=== PATIENT | male | born 1940 | race Caucasian/White ===

== ENCOUNTER 2018-10-10 13:00 | Inpatient (IN) | payer MEDICARE, OTHER ==
--- NOTE | 2018-10-10 15:27 | EDM.PDOC ---
ED HPI GENERAL MEDICAL PROBLEM - General Chief Complaint: Genitourinary Problem Stated Complaint: CANNOT USE THE BATHROOM Time Seen by Provider: 10/10/18 15:24 Source of Information: Reports: Patient History Limitations: Reports: No Limitations - History of Present Illness INITIAL COMMENTS - FREE TEXT/NARRATIVE: pt is having problems passing his urine. He has not had a bm for 3 days. He is distended and feels uncomfortable in his abdoman. Onset: Today Duration: Hour(s): Location: Reports: Abdomen, Generalized Associated Symptoms: Reports: No Other Symptoms Abdomen Pain Score (Numeric/FACES): 8 - Related Data Allergies Allergy/AdvReac Type Severity Reaction Status Date / Time No Known Allergies Allergy Verified 10/10/18 14:25 Home Meds: Home Meds Aspirin 81 mg PO DAILY 10/10/18 [History] Enalapril [Vasotec] 20 mg PO DAILY 10/10/18 [History] Simvastatin 10 mg PO DAILY 10/10/18 [History] Sulfamethoxazole/Trimethoprim [Bactrim Ds Tablet] 1 each PO BID 10/10/18 [ History] Past Medical History HEENT History: Reports: Cataract Cardiovascular History: Reports: High Cholesterol, Hypertension Respiratory History: Reports: SOB Musculoskeletal History: Reports: Back Pain, Chronic Endocrine/Metabolic History: Reports: Obesity/BMI 30+ Oncologic (Cancer) History: Reports: Other (See Below) Other Oncologic History: "skin cancer on nose." - Past Surgical History HEENT Surgical History: Reports: Cataract Surgery Social & Family History - Tobacco Use Smoking Status *Q: Former Smoker Used Tobacco, but Quit: Yes Month/Year Tobacco Last Used: 2008 - Caffeine Use Caffeine Use: Reports: Coffee - Recreational Drug Use Recreational Drug Use: No ED ROS GENERAL - Review of Systems Review Of Systems: See Below Constitutional: Reports: Malaise, Weakness, Other ( difficulty voiding. ) HEENT: Reports: No Symptoms Respiratory: Reports: No Symptoms Cardiovascular: Reports: No Symptoms Endocrine: Reports: No Symptoms GI/Abdominal: Reports: Abdominal Pain : Reports: Urinary Retention Musculoskeletal: Reports: No Symptoms ED EXAM, GI/ABD - Physical Exam Exam: See Below Text/Narrative:: pt arrived at the hosp rating his pain at a 8. He has not had a bm for 3 days. He is having difficulty voiding. Only small drops are coming. He was told yesterday that he has a UTI and is on bactrim. He is not vomiting but he is not passing gas. Exam Limited By: No Limitations General Appearance: Alert, Anxious, Moderate Distress Ears: Normal TMs Nose: Normal Inspection Throat/Mouth: Normal Inspection Head: Atraumatic Neck: Normal Inspection Respiratory/Chest: No Respiratory Distress Cardiovascular: Regular Rate, Rhythm GI/Abdominal Exam: Distended, Other ( diffusely tender. He is not passing gas. ) (Male) Exam: Other (pt has about 800 cc of urine in his bladder. A davidson cath was inserted. ) Rectal (Males) Exam: Deferred Back Exam: Normal Inspection Extremities: Normal Inspection Neurological: Alert, Oriented, Normal Cognition Psychiatric: Normal Affect Course - Vital Signs Last Recorded V/S: Last Vital Signs Temp 35.8 C 10/10/18 14:34 Pulse 68 10/10/18 14:34 Resp 19 10/10/18 14:34 BP 169/85 H 10/10/18 14:34 Pulse Ox 91 L 10/10/18 14:34 - Orders/Labs/Meds Orders: Active Orders 24 hr Category Date Time Status Bladder Scan [RC] ASDIRECTED Care 10/10/18 14:31 Active Davidson Catheter Insertion [Insert Urinary Catheter] [OM. Care 10/10/18 15:15 Ordered PC] Q24H Urinary Catheter Assessment [RC] ASDIRECTED Care 10/10/18 15:12 Active Sodium Chloride 0.9% [Normal Saline] 1,000 ml Med 10/10/18 15:30 Active IV ASDIRECTED Sodium Chloride 0.9% [Normal Saline] 1,000 ml Med 10/10/18 16:45 Active IV ASDIRECTED Medication Orders Sodium Chloride (Normal Saline) 1,000 mls @ 999 mls/hr IV ASDIRECTED PAYAM Last Admin: 10/10/18 15:45 Dose: 999 mls/hr Sodium Chloride (Normal Saline) 1,000 mls @ 500 mls/hr IV ASDIRECTED PAYAM Labs: Laboratory Tests 10/10/18 10/10/18 10/10/18 Range/Units 14:31 14:31 14:31 WBC 13.5 H (4.5-11.0) K/uL RBC 4.75 (4.30-5.90) M/uL Hgb 13.7 (12.0-15.0) g/dL Hct 41.4 (40.0-54.0) % MCV 87 (80-98) fL MCH 29 (27-31) pg MCHC 33 (32-36) % Plt Count 313 (150-400) K/uL Neut % (Auto) 71 H (36-66) % Lymph % (Auto) 11 L (24-44) % [place] % (Auto) 18 H (2-6) % Eos % (Auto) 0 L (2-4) % Baso % (Auto) 0 (0-1) % Sodium 135 L (140-148) mmol/L Potassium 4.2 (3.6-5.2) mmol/L Chloride 97 L (100-108) mmol/L Carbon Dioxide 25 (21-32) mmol/L Anion Gap 17.2 H (5.0-14.0) mmol/L BUN 23 H (7-18) mg/dL Creatinine 3.2 H (0.8-1.3) mg/dL Est Cr Clr Drug Dosing 16.89 mL/min Estimated GFR (MDRD) 19 L (>60) Glucose 145 H (74-106) mg/dL Lactic Acid (0.4-2.0) mmol/L Calcium 9.8 (8.5-10.1) mg/dL Total Bilirubin 0.6 (0.2-1.0) mg/dL AST 30 (15-37) U/L ALT 28 (12-78) U/L Alkaline Phosphatase 65 (46-116) U/L C-Reactive Protein 3.09 H (0.0-0.3) mg/dL Total Protein 7.2 (6.4-8.2) g/dL Albumin 3.4 (3.4-5.0) g/dL Globulin 3.8 H (2.3-3.5) g/dL Albumin/Globulin Ratio 0.9 L (1.2-2.2) Urine Color Urine Appearance Urine pH (4.5-8.0) Ur Specific [place] (1.008-1.030) Urine Protein (NEGATIVE) mg/dL Urine Glucose (UA) (NEGATIVE) mg/dL Urine Ketones (NEGATIVE) mg/dL Urine Occult Blood (NEGATIVE) Urine Nitrite (NEGAITVE) Urine Bilirubin (NEGATIVE) Urine Urobilinogen (NORMAL) mg/dL Ur Leukocyte Esterase (NEGATIVE) Urine RBC (0-5) Urine WBC (0-5) Ur Epithelial Cells Amorphous Sediment Urine Bacteria Urine Mucus 10/10/18 10/10/18 Range/Units 15:25 15:43 WBC (4.5-11.0) K/uL RBC (4.30-5.90) M/uL Hgb (12.0-15.0) g/dL Hct (40.0-54.0) % MCV (80-98) fL MCH (27-31) pg MCHC (32-36) % Plt Count (150-400) K/uL Neut % (Auto) (36-66) % Lymph % (Auto) (24-44) % [place] % (Auto) (2-6) % Eos % (Auto) (2-4) % Baso % (Auto) (0-1) % Sodium (140-148) mmol/L Potassium (3.6-5.2) mmol/L Chloride (100-108) mmol/L Carbon Dioxide (21-32) mmol/L Anion Gap (5.0-14.0) mmol/L BUN (7-18) mg/dL Creatinine (0.8-1.3) mg/dL Est Cr Clr Drug Dosing mL/min Estimated GFR (MDRD) (>60) Glucose (74-106) mg/dL Lactic Acid 2.5 H (0.4-2.0) mmol/L Calcium (8.5-10.1) mg/dL Total Bilirubin (0.2-1.0) mg/dL AST (15-37) U/L ALT (12-78) U/L Alkaline Phosphatase (46-116) U/L C-Reactive Protein (0.0-0.3) mg/dL Total Protein (6.4-8.2) g/dL Albumin (3.4-5.0) g/dL Globulin (2.3-3.5) g/dL Albumin/Globulin Ratio (1.2-2.2) Urine Color Yellow Urine Appearance Clear Urine pH 5.0 (4.5-8.0) Ur Specific [place] 1.010 (1.008-1.030) Urine Protein Negative (NEGATIVE) mg/dL Urine Glucose (UA) Normal (NEGATIVE) mg/dL Urine Ketones Negative (NEGATIVE) mg/dL Urine Occult Blood Large (NEGATIVE) Urine Nitrite Negative (NEGAITVE) Urine Bilirubin Negative (NEGATIVE) Urine Urobilinogen Normal (NORMAL) mg/dL Ur Leukocyte Esterase Negative (NEGATIVE) Urine RBC 20-30 H (0-5) Urine WBC Not seen (0-5) Ur Epithelial Cells Not seen Amorphous Sediment Not seen Urine Bacteria Not seen Urine Mucus Not seen Meds: Medications Generic Name Dose Route Start Last Admin Trade Name Freq PRN Reason Stop Dose Admin Sodium Chloride 1,000 mls @ 999 mls/hr 10/10/18 15:30 10/10/18 15:45 Normal Saline IV 999 mls/hr ASDIRECTED PAYAM Administration Sodium Chloride 1,000 mls @ 500 mls/hr 10/10/18 16:45 Normal Saline IV ASDIRECTED PAYAM Discontinued Medications Generic Name Dose Route Start Last Admin Trade Name Freq PRN Reason Stop Dose Admin Hydromorphone HCl 0.5 mg 10/10/18 16:07 10/10/18 16:15 Dilaudid IVPUSH 10/10/18 16:08 0.5 mg ONETIME ONE Administration Magnesium Citrate 296 ml 10/10/18 16:44 Citrate Of Magnesia PO 10/10/18 16:45 ONETIME ONE Ondansetron HCl 4 mg 10/10/18 16:08 10/10/18 16:12 Zofran IVPUSH 10/10/18 16:09 4 mg ONETIME ONE Administration - Re-Assessments/Exams Free Text/Narrative Re-Assessment/Exam: 10/10/18 16:49 wbc is 13,000. He had a creatnine of 3.2. He had a rectal exam which did not reveal any rectal stool present. He was given dilauduid .5 iv. Departure - Departure Time of Disposition: 16:52 Disposition: Admitted As Inpatient 65 Condition: Fair Clinical Impression: Urinary retention, Constipation, Kidney inflammation with edema - Discharge Information Referrals: Ronaldo Munguia [employer] [Primary Care Provider] - Forms: ED Department Discharge Care Plan Goals: admit to Dr olguin - My Orders Last 24 Hours: My Active Orders 10/10/18 14:31 Bladder Scan [RC] ASDIRECTED 10/10/18 15:12 Urinary Catheter Assessment [RC] ASDIRECTED 10/10/18 15:15 Davidson Catheter Insertion [Insert Urinary Catheter] [OM.PC] Q24H 10/10/18 15:30 Sodium Chloride 0.9% [Normal Saline] 1,000 ml IV ASDIRECTED 10/10/18 16:45 Sodium Chloride 0.9% [Normal Saline] 1,000 ml IV ASDIRECTED - Assessment/Plan Last 24 Hours: My Active Orders 10/10/18 14:31 Bladder Scan [RC] ASDIRECTED 10/10/18 15:12 Urinary Catheter Assessment [RC] ASDIRECTED 10/10/18 15:15 Davidson Catheter Insertion [Insert Urinary Catheter] [OM.PC] Q24H 10/10/18 15:30 Sodium Chloride 0.9% [Normal Saline] 1,000 ml IV ASDIRECTED 10/10/18 16:45 Sodium Chloride 0.9% [Normal Saline] 1,000 ml IV ASDIRECTED
[2018-10-10] MEDS ORDERED: Sodium Chloride 0.9% 1,000 ML IV SCH ×2 (15:30→16:45)
--- NOTE | 2018-10-10 15:44 | CRLCR ---
TECHNIQUE: Single view of the chest, upright view of the upper abdomen, supine view of the mid and lower abdomen. INDICATION: Abdominal pain. FINDINGS: Gas distended loops of colon in the abdomen. No free air. Both ileus and obstruction are possible. Consider contrast-enhanced CT for further evaluation. Dictated by Jonathan Mai MD @ 10/10/2018 3:42:14 PM Dictated by: Jonathan aMi MD @ 10/10/2018 15:42:19 (Electronically Signed)
[2018-10-10] MEDS ORDERED: HYDROmorphone 0.5 MG/0.5 ML Syringe IVPUSH ONE (16:07)
[2018-10-10] MEDS ORDERED: Ondansetron 4 MG/2 ML SDV IVPUSH ONE (16:08)
--- NOTE | 2018-10-10 16:29 | CRLCT ---
TECHNIQUE: Noncontrast CT abdomen and pelvis. INDICATION: Distended abdomen, no stool for 3 days. COMPARISON: Abdomen x-ray same day. FINDINGS: The liver, spleen, pancreas, and adrenal glands are normal. There is a small hiatal hernia. Gallbladder and biliary tree are unremarkable. There is gas and a small amount of stool within the colon but no evidence for either small or large bowel obstruction. There is colonic diverticulosis with no evidence for acute diverticulitis. The appendix is normal. There is a fair amount of retroperitoneal stranding, particularly around both kidneys. This is typically a normal variant. A retroperitoneal inflammatory or infiltrative process is unlikely. No adenopathy, free air, or free fluid. Emphysema in the lung bases. Reynolds catheter in the bladder. Prostate enlargement. IMPRESSION: No acute findings. No evidence for bowel obstruction. Dictated by Jonathan Mai MD @ 10/10/2018 4:27:03 PM Please note that all CT scans at this facility use dose modulation, iterative reconstruction, and/or weight-based dosing when appropriate to reduce radiation dose to as low as reasonably achievable. Dictated by: Jonathan Mai MD @ 10/10/2018 16:27:12 (Electronically Signed)
[2018-10-10] MEDS ORDERED: Magnesium Citrate Solution 296 ML Bottle PO ONE (16:44)
--- NOTE | 2018-10-10 17:37 | PCM.HP ---
H&P History of Present Illness - General Date of Service: 10/10/18 Admit Problem/Dx: Admission Diagnosis/Problem Admission Diagnosis/Problem Acute kidney injury Source of Information: Patient, Provider History Limitations: Reports: No Limitations - History of Present Illness Initial Comments - Free Text/Narative: CC: I can't pee HPI: Michael presents to the emergency room today with inability to pass urine. Symptoms started 2 days ago and were accompanied by abdominal distention as well as nausea. He was up about every hour during the night 2 nights ago trying to pass urine but only able to pass small quantities. Symptoms persisted throughout the day yesterday and overnight and have continued again today. He was seen in the clinic yesterday and diagnosed with a urinary tract infection and started on Bactrim. His abdomen has had progressive distention over the past 2 days. He has not had a bowel movement or passed gas in 48 hours. He describes moderate crampy and pressure-like abdominal pain. Pain does not radiate but is spread throughout his abdomen. He hasn't taken anything to make it feel better. No obvious triggers to make it worse. He does not feel short of breath. He has not had any fevers but has had some chills. No history of prostate issues that he recalls. He's never had a bladder infection before. He does note that he spent most of the last week writing on a 4 holcomb. Workup in the emergency room has revealed acute kidney injury with a creatinine of 3.2 and a normal GFR at baseline. He is not febrile. CT scan of the abdomen shows significant gas throughout the colon but no evidence for obstruction. No significant stool in the colon. A Reynolds catheter was placed because of urinary retention and a bladder scan with more than 800 mL of urine in the bladder. He will be admitted for further management. Abdomen Pain Score (Numeric/FACES): 8 - Related Data Allergies/Adverse Reactions: Allergies Allergy/AdvReac Type Severity Reaction Status Date / Time No Known Allergies Allergy Verified 10/10/18 14:25 Home Medications: Home Meds Aspirin 81 mg PO DAILY 10/10/18 [History] Enalapril [Vasotec] 20 mg PO DAILY 10/10/18 [History] Simvastatin 10 mg PO DAILY 10/10/18 [History] Sulfamethoxazole/Trimethoprim [Bactrim Ds Tablet] 1 each PO BID 10/10/18 [ History] Past Medical History HEENT History: Reports: Cataract Cardiovascular History: Reports: High Cholesterol, Hypertension Respiratory History: Reports: SOB Musculoskeletal History: Reports: Back Pain, Chronic Endocrine/Metabolic History: Reports: Obesity/BMI 30+ Oncologic (Cancer) History: Reports: Other (See Below) Other Oncologic History: "skin cancer on nose." - Past Surgical History HEENT Surgical History: Reports: Cataract Surgery Social & Family History - Family History Musculoskeletal: Reports: Arthritis - Tobacco Use Smoking Status *Q: Former Smoker Used Tobacco, but Quit: Yes Month/Year Tobacco Last Used: 2008 - Caffeine Use Caffeine Use: Reports: Coffee - Alcohol Use Alcohol Use History: No - Recreational Drug Use Recreational Drug Use: No H&P Review of Systems - Review of Systems: Review Of Systems: See Below Free Text/Narrative: A complete 12 point review of systems was obtained. Pertinent positives and negatives are noted in the history of present illness. All other systems were reviewed and were negative except as noted. Exam - Exam Exam: See Below - Vital Signs Vital Signs: Last Vital Signs Temp 35.8 C 10/10/18 14:34 Pulse 68 10/10/18 14:34 Resp 19 10/10/18 14:34 BP 169/85 H 10/10/18 14:34 Pulse Ox 91 L 10/10/18 14:34 Weight: 103.5 kg - Exam Quality Assessment: No: Supplemental Oxygen General: Alert, Oriented, Cooperative. No: Mild Distress HEENT: Conjunctiva Clear. No: Mucosa Moist & [place] (dry), Scleral Icterus Neck: Supple, Trachea Midline. No: Lymphadenopathy Lungs: Clear to Auscultation, Normal Respiratory Effort Cardiovascular: Regular Rate, Regular Rhythm. No: Systolic Murmur GI/Abdominal Exam: Soft, Distended, Tender, Abnormal Bowel Sounds (hypoactive) Extremities: No Pedal Edema. No: Increased Warmth Peripheral Pulses: 2+: Dorsalis Pedis (L), Dorsalis Pedis (R) Skin: Warm, Dry Neuro Extensive - Mental Status: Alert, Oriented x3, Nl Response to Commands Neuro Extensive - Motor, Sensory, Reflexes: No: Dysarthria, Abnormal Motor, Tremor Psychiatric: Alert, Normal Affect - Patient Data Lab Results Last 24 hrs: Laboratory Results - last 24 hr 10/10/18 10/10/18 10/10/18 Range/Units 14:31 14:31 14:31 WBC 13.5 H (4.5-11.0) K/uL RBC 4.75 (4.30-5.90) M/uL Hgb 13.7 (12.0-15.0) g/dL Hct 41.4 (40.0-54.0) % MCV 87 (80-98) fL MCH 29 (27-31) pg MCHC 33 (32-36) % Plt Count 313 (150-400) K/uL Neut % (Auto) 71 H (36-66) % Lymph % (Auto) 11 L (24-44) % [place] % (Auto) 18 H (2-6) % Eos % (Auto) 0 L (2-4) % Baso % (Auto) 0 (0-1) % Sodium 135 L (140-148) mmol/L Potassium 4.2 (3.6-5.2) mmol/L Chloride 97 L (100-108) mmol/L Carbon Dioxide 25 (21-32) mmol/L Anion Gap 17.2 H (5.0-14.0) mmol/L BUN 23 H (7-18) mg/dL Creatinine 3.2 H (0.8-1.3) mg/dL Est Cr Clr Drug Dosing 16.89 mL/min Estimated GFR (MDRD) 19 L (>60) Glucose 145 H (74-106) mg/dL Lactic Acid (0.4-2.0) mmol/L Calcium 9.8 (8.5-10.1) mg/dL Total Bilirubin 0.6 (0.2-1.0) mg/dL AST 30 (15-37) U/L ALT 28 (12-78) U/L Alkaline Phosphatase 65 (46-116) U/L C-Reactive Protein 3.09 H (0.0-0.3) mg/dL Total Protein 7.2 (6.4-8.2) g/dL Albumin 3.4 (3.4-5.0) g/dL Globulin 3.8 H (2.3-3.5) g/dL Albumin/Globulin Ratio 0.9 L (1.2-2.2) Urine Color Urine Appearance Urine pH (4.5-8.0) Ur Specific [place] (1.008-1.030) Urine Protein (NEGATIVE) mg/dL Urine Glucose (UA) (NEGATIVE) mg/dL Urine Ketones (NEGATIVE) mg/dL Urine Occult Blood (NEGATIVE) Urine Nitrite (NEGAITVE) Urine Bilirubin (NEGATIVE) Urine Urobilinogen (NORMAL) mg/dL Ur Leukocyte Esterase (NEGATIVE) Urine RBC (0-5) Urine WBC (0-5) Ur Epithelial Cells Amorphous Sediment Urine Bacteria Urine Mucus 10/10/18 10/10/18 Range/Units 15:25 15:43 WBC (4.5-11.0) K/uL RBC (4.30-5.90) M/uL Hgb (12.0-15.0) g/dL Hct (40.0-54.0) % MCV (80-98) fL MCH (27-31) pg MCHC (32-36) % Plt Count (150-400) K/uL Neut % (Auto) (36-66) % Lymph % (Auto) (24-44) % [place] % (Auto) (2-6) % Eos % (Auto) (2-4) % Baso % (Auto) (0-1) % Sodium (140-148) mmol/L Potassium (3.6-5.2) mmol/L Chloride (100-108) mmol/L Carbon Dioxide (21-32) mmol/L Anion Gap (5.0-14.0) mmol/L BUN (7-18) mg/dL Creatinine (0.8-1.3) mg/dL Est Cr Clr Drug Dosing mL/min Estimated GFR (MDRD) (>60) Glucose (74-106) mg/dL Lactic Acid 2.5 H (0.4-2.0) mmol/L Calcium (8.5-10.1) mg/dL Total Bilirubin (0.2-1.0) mg/dL AST (15-37) U/L ALT (12-78) U/L Alkaline Phosphatase (46-116) U/L C-Reactive Protein (0.0-0.3) mg/dL Total Protein (6.4-8.2) g/dL Albumin (3.4-5.0) g/dL Globulin (2.3-3.5) g/dL Albumin/Globulin Ratio (1.2-2.2) Urine Color Yellow Urine Appearance Clear Urine pH 5.0 (4.5-8.0) Ur Specific [place] 1.010 (1.008-1.030) Urine Protein Negative (NEGATIVE) mg/dL Urine Glucose (UA) Normal (NEGATIVE) mg/dL Urine Ketones Negative (NEGATIVE) mg/dL Urine Occult Blood Large (NEGATIVE) Urine Nitrite Negative (NEGAITVE) Urine Bilirubin Negative (NEGATIVE) Urine Urobilinogen Normal (NORMAL) mg/dL Ur Leukocyte Esterase Negative (NEGATIVE) Urine RBC 20-30 H (0-5) Urine WBC Not seen (0-5) Ur Epithelial Cells Not seen Amorphous Sediment Not seen Urine Bacteria Not seen Urine Mucus Not seen Result Diagrams: 10/10/18 14:31 10/10/18 14:31 Imaging Impressions Last 24 hrs: Chest and abdomen x-ray - images personally reviewed - lungs are clear with no mass, infiltrate or effusion. Fair amount of gas is noted throughout the colon with differential including ileus. Obstruction cannot be ruled out. CT scan of the abdomen and pelvis - images also personally reviewed - significant gaseous distention of the colon but not a lot of stool in the colon. Retroperitoneal Stranding around both kidneys thought to be normal variant. No other acute findings. No evidence for bowel obstruction. *Q Meaningful Use (ADM) - VTE Risk Assess *Q Each Risk Factor Represents 1 Point: Obesity ( BMI > 25 kg/m2), Abnormal Pulmonary Function (COPD) Total Score 1 Point Risk Factors: 2 Each Risk Factor Represents 2 Points: None Total Score 2 Point Risk Factors: 0 Each Risk Factor Represents 3 Points: Age 75 Years or Greater Total Score 3 Point Risk Factors: 3 Each Risk Factor Represents 5 Points: None Total Score 5 Point Risk Factors: 0 Venous Thromboembolism Risk Factor Score *Q: 5 - Problem List (1) Acute kidney injury SNOMED Code(s): 05986610, 32978589 ICD Code: N17.9 - ACUTE KIDNEY FAILURE, UNSPECIFIED Status: Acute Current Visit: Yes (2) Prostatitis SNOMED Code(s): 1893489 ICD Code: N41.9 - INFLAMMATORY DISEASE OF PROSTATE, UNSPECIFIED Status: Acute Current Visit: Yes Qualifiers: Prostatitis type: acute Qualified Code(s): N41.0 - Acute prostatitis (3) Ileus SNOMED Code(s): 210008957 ICD Code: K56.7 - ILEUS, UNSPECIFIED Status: Acute Current Visit: Yes Problem List Initiated/Reviewed/Updated: Yes Orders Last 24hrs: Active Orders 24 hr Category Date Time Status Patient Status Manage Transfer [TRANSFER] Routine ADT 10/10/18 17:31 Ordered Bladder Scan [RC] ASDIRECTED Care 10/10/18 14:31 Active Reynolds Catheter Insertion [Insert Urinary Catheter] [OM. Care 10/10/18 15:15 Ordered PC] Q24H Urinary Catheter Assessment [RC] ASDIRECTED Care 10/10/18 15:12 Active Sodium Chloride 0.9% [Normal Saline] 1,000 ml Med 10/10/18 15:30 Active IV ASDIRECTED Sodium Chloride 0.9% [Normal Saline] 1,000 ml Med 10/10/18 16:45 Active IV ASDIRECTED Sodium Chloride 0.9% [Normal Saline] 1,000 ml Med 10/10/18 17:30 Active IV ASDIRECTED cefTRIAXone [Rocephin] 2 gm Med 10/10/18 17:30 Active Sodium Chloride 0.9% [Normal Saline] 50 ml IV Q24H Resuscitation Status Routine Resus Stat 10/10/18 17:32 Ordered Medication Orders Sodium Chloride (Normal Saline) 1,000 mls @ 999 mls/hr IV ASDIRECTED ON LICENSE OF [facility] Last Admin: 10/10/18 15:45 Dose: 999 mls/hr Sodium Chloride (Normal Saline) 1,000 mls @ 500 mls/hr IV ASDIRECTED ON LICENSE OF [facility] Last Admin: 10/10/18 17:35 Dose: 500 mls/hr Ceftriaxone Sodium 2 gm/ (Sodium Chloride) 50 mls @ 100 mls/hr IV Q24H PAYAM Sodium Chloride (Normal Saline) 1,000 mls @ 100 mls/hr IV ASDIRECTED ON LICENSE OF [facility] Assessment/Plan Comment:: ASSESSMENT AND PLAN - Acute kidney injury - creatinine of 3.2 with baseline around 1. There may be a component of dehydration and possibly a component of obstruction leading to congestion. He is making good urine. Vital signs are stable. He has received 2 L of IV fluid in the emergency room. -IV fluids overnight -Labs in the morning Acute prostatitis, suspected - urine sample suggestive of infection and patient has acute urinary retention. Urine at this point is clear. He has been on the 4 holcomb a great deal and I suspect this irritated in lead 2 the infection in the prostate. Lactic acid level is elevated but I think it's related to dehydration rather than sepsis with normal vital signs. He was started on Bactrim yesterday but with his kidney function this is not a good antibiotic option. -Ceftriaxone -IV fluids overnight -Follow-up urine culture Acute urinary retention - Probably related to the prostatitis as discussed above. A Reynolds catheter has been placed with a urinary bladder containing more than 800 mL based on bladder scanning. -Anticipate catheter will be in place for 2 weeks Ileus, suspected - Trigger for the ileus would be his urinary tract infection. No evidence for obstruction. There is not a large quantity of stool in the colon and there is mostly gas noted. -Treat infection as above -Consider suppository in the morning Maintenance issues - - DVT prophylaxis - mechanical - GI prophylaxis - Not indicated - Nutrition - Full liquids - Reynolds catheter - Placed in the emergency room because of acute urinary retention CODE STATUS - full code Admission justification - This patient will be admitted for inpatient services and is medically appropriate meeting medical necessity for inpatient admission as outlined in my documentation. I reasonably expect the patient will require inpatient services that span a period time over 2 midnights. I reasonably expect this patient to be discharged or transferred within 96 hours after admission to the [facility]. Disposition - I would anticipate discharge home after the hospital stay Jonathan Peña M.D.
[2018-10-10] MEDS: cefTRIAXone 2 GM in Sodium Chloride 0.9% 50 ML IV SCH (17:49)
[2018-10-10] MEDS ORDERED: Ondansetron 4 MG Tab.DIS PO PRN (18:15)
[2018-10-10] MEDS ORDERED: HYDROmorphone 1 MG/ML Syringe IVPUSH PRN (18:15)
[2018-10-10] MEDS ORDERED: Albuterol 0.083% 2.5 MG/3 ML Neb Soln NEB PRN (18:15)
[2018-10-10] MEDS ORDERED: Magnesium Hydroxide 400 MG/5 ML Susp 30 ML Cup PO PRN (18:15)
[2018-10-10] MEDS ORDERED: Acetaminophen 325 MG Tab PO PRN (18:15)
[2018-10-10] MEDS ORDERED: LORazepam 2 MG/ML SDV IVPUSH PRN (18:15)
[2018-10-10] MEDS ORDERED: Ondansetron 4 MG/2 ML SDV IV PRN (18:15)
[2018-10-10] MEDS ORDERED: oxyCODONE 5 MG Tab PO PRN (18:15)
[2018-10-11] MEDS: Sodium Chloride 0.9% 1,000 ML IV SCH ×2 (00:42→11:19)
[2018-10-11] MEDS: Simvastatin 20 MG Tab PO SCH (08:11)
[2018-10-11] MEDS: Aspirin 81 MG Tab.Chew PO SCH (08:12)
[2018-10-11] MEDS: Enalapril 5 MG Tab PO SCH (08:12)
--- NOTE | 2018-10-11 14:16 | PCM.PN ---
- General Info Date of Service: 10/11/18 Subjective Update: no acute events overnight. Patient has had 2 large bowel movements since admission and abdominal pain and distention are improving but have not resolved. Not much of an appetite but did tolerate his diet okay. He has not had any high fevers but did have some low-grade temperature elevations. Kidney function has improved and his creatinine is down to 1.8. Urine culture pending. Tolerating current antibiotics. Functional Status: Reports: Pain Controlled, Tolerating Diet - Review of Systems General: Denies: Fever Gastrointestinal: Reports: Abdominal Pain - Patient Data Vitals - Most Recent: Last Vital Signs Temp 36.8 C 10/11/18 10:28 Pulse 66 10/11/18 10:28 Resp 18 10/11/18 10:28 BP 152/77 H 10/11/18 10:28 Pulse Ox 94 L 10/11/18 10:28 Weight - Most Recent: 101.06 kg I&O - Last 24 Hours: Intake & Output 10/10/18 10/11/18 10/11/18 22:59 06:59 14:59 Intake Total 400 1395 720 Output Total 1400 925 Balance -1000 470 720 Lab Results Last 24 Hours: Laboratory Results - last 24 hr 10/10/18 10/10/18 10/10/18 Range/Units 14:31 14:31 14:31 WBC 13.5 H (4.5-11.0) K/uL RBC 4.75 (4.30-5.90) M/uL Hgb 13.7 (12.0-15.0) g/dL Hct 41.4 (40.0-54.0) % MCV 87 (80-98) fL MCH 29 (27-31) pg MCHC 33 (32-36) % Plt Count 313 (150-400) K/uL Neut % (Auto) 71 H (36-66) % Lymph % (Auto) 11 L (24-44) % [place] % (Auto) 18 H (2-6) % Eos % (Auto) 0 L (2-4) % Baso % (Auto) 0 (0-1) % Sodium 135 L (140-148) mmol/L Potassium 4.2 (3.6-5.2) mmol/L Chloride 97 L (100-108) mmol/L Carbon Dioxide 25 (21-32) mmol/L Anion Gap 17.2 H (5.0-14.0) mmol/L BUN 23 H (7-18) mg/dL Creatinine 3.2 H (0.8-1.3) mg/dL Est Cr Clr Drug Dosing 16.89 mL/min Estimated GFR (MDRD) 19 L (>60) Glucose 145 H (74-106) mg/dL Lactic Acid (0.4-2.0) mmol/L Calcium 9.8 (8.5-10.1) mg/dL Total Bilirubin 0.6 (0.2-1.0) mg/dL AST 30 (15-37) U/L ALT 28 (12-78) U/L Alkaline Phosphatase 65 (46-116) U/L C-Reactive Protein 3.09 H (0.0-0.3) mg/dL Total Protein 7.2 (6.4-8.2) g/dL Albumin 3.4 (3.4-5.0) g/dL Globulin 3.8 H (2.3-3.5) g/dL Albumin/Globulin Ratio 0.9 L (1.2-2.2) Urine Color Urine Appearance Urine pH (4.5-8.0) Ur Specific [place] (1.008-1.030) Urine Protein (NEGATIVE) mg/dL Urine Glucose (UA) (NEGATIVE) mg/dL Urine Ketones (NEGATIVE) mg/dL Urine Occult Blood (NEGATIVE) Urine Nitrite (NEGAITVE) Urine Bilirubin (NEGATIVE) Urine Urobilinogen (NORMAL) mg/dL Ur Leukocyte Esterase (NEGATIVE) Urine RBC (0-5) Urine WBC (0-5) Ur Epithelial Cells Amorphous Sediment Urine Bacteria Urine Mucus 10/10/18 10/10/18 10/11/18 Range/Units 15:25 15:43 05:56 WBC 11.3 H (4.5-11.0) K/uL RBC 4.33 (4.30-5.90) M/uL Hgb 12.4 (12.0-15.0) g/dL Hct 38.7 L (40.0-54.0) % MCV 89 (80-98) fL MCH 29 (27-31) pg MCHC 32 (32-36) % Plt Count 242 (150-400) K/uL Neut % (Auto) (36-66) % Lymph % (Auto) (24-44) % [place] % (Auto) (2-6) % Eos % (Auto) (2-4) % Baso % (Auto) (0-1) % Sodium (140-148) mmol/L Potassium (3.6-5.2) mmol/L Chloride (100-108) mmol/L Carbon Dioxide (21-32) mmol/L Anion Gap (5.0-14.0) mmol/L BUN (7-18) mg/dL Creatinine (0.8-1.3) mg/dL Est Cr Clr Drug Dosing mL/min Estimated GFR (MDRD) (>60) Glucose (74-106) mg/dL Lactic Acid 2.5 H (0.4-2.0) mmol/L Calcium (8.5-10.1) mg/dL Total Bilirubin (0.2-1.0) mg/dL AST (15-37) U/L ALT (12-78) U/L Alkaline Phosphatase (46-116) U/L C-Reactive Protein (0.0-0.3) mg/dL Total Protein (6.4-8.2) g/dL Albumin (3.4-5.0) g/dL Globulin (2.3-3.5) g/dL Albumin/Globulin Ratio (1.2-2.2) Urine Color Yellow Urine Appearance Clear Urine pH 5.0 (4.5-8.0) Ur Specific [place] 1.010 (1.008-1.030) Urine Protein Negative (NEGATIVE) mg/dL Urine Glucose (UA) Normal (NEGATIVE) mg/dL Urine Ketones Negative (NEGATIVE) mg/dL Urine Occult Blood Large (NEGATIVE) Urine Nitrite Negative (NEGAITVE) Urine Bilirubin Negative (NEGATIVE) Urine Urobilinogen Normal (NORMAL) mg/dL Ur Leukocyte Esterase Negative (NEGATIVE) Urine RBC 20-30 H (0-5) Urine WBC Not seen (0-5) Ur Epithelial Cells Not seen Amorphous Sediment Not seen Urine Bacteria Not seen Urine Mucus Not seen 10/11/18 Range/Units 05:56 WBC (4.5-11.0) K/uL RBC (4.30-5.90) M/uL Hgb (12.0-15.0) g/dL Hct (40.0-54.0) % MCV (80-98) fL MCH (27-31) pg MCHC (32-36) % Plt Count (150-400) K/uL Neut % (Auto) (36-66) % Lymph % (Auto) (24-44) % [place] % (Auto) (2-6) % Eos % (Auto) (2-4) % Baso % (Auto) (0-1) % Sodium 141 (140-148) mmol/L Potassium 3.8 (3.6-5.2) mmol/L Chloride 105 (100-108) mmol/L Carbon Dioxide 28 (21-32) mmol/L Anion Gap 7.8 (5.0-14.0) mmol/L BUN 18 (7-18) mg/dL Creatinine 1.8 H (0.8-1.3) mg/dL Est Cr Clr Drug Dosing 30.03 mL/min Estimated GFR (MDRD) 37 L (>60) Glucose 121 H (74-106) mg/dL Lactic Acid (0.4-2.0) mmol/L Calcium 8.9 (8.5-10.1) mg/dL Total Bilirubin (0.2-1.0) mg/dL AST (15-37) U/L ALT (12-78) U/L Alkaline Phosphatase (46-116) U/L C-Reactive Protein (0.0-0.3) mg/dL Total Protein (6.4-8.2) g/dL Albumin (3.4-5.0) g/dL Globulin (2.3-3.5) g/dL Albumin/Globulin Ratio (1.2-2.2) Urine Color Urine Appearance Urine pH (4.5-8.0) Ur Specific [place] (1.008-1.030) Urine Protein (NEGATIVE) mg/dL Urine Glucose (UA) (NEGATIVE) mg/dL Urine Ketones (NEGATIVE) mg/dL Urine Occult Blood (NEGATIVE) Urine Nitrite (NEGAITVE) Urine Bilirubin (NEGATIVE) Urine Urobilinogen (NORMAL) mg/dL Ur Leukocyte Esterase (NEGATIVE) Urine RBC (0-5) Urine WBC (0-5) Ur Epithelial Cells Amorphous Sediment Urine Bacteria Urine Mucus Med Orders - Current: Current Medications Acetaminophen (Tylenol) 650 mg PO Q4H PRN PRN Reason: Pain (Mild 1-3)/fever Albuterol (Proventil Neb Soln) 2.5 mg NEB Q4H PRN PRN Reason: Shortness Of Breath/wheezing Aspirin (Aspirin) 81 mg PO DAILY [facility] Last Admin: 10/11/18 08:12 Dose: 81 mg Enalapril Maleate (Vasotec) 20 mg PO DAILY [facility] Last Admin: 10/11/18 08:12 Dose: 20 mg Hydromorphone HCl (Dilaudid) 0.5 mg IVPUSH Q2H PRN PRN Reason: Pain (severe 7-10) Ceftriaxone Sodium 2 gm/ (Sodium Chloride) 50 mls @ 100 mls/hr IV Q24H [facility] Last Admin: 10/10/18 17:49 Dose: 100 mls/hr Sodium Chloride (Normal Saline) 1,000 mls @ 100 mls/hr IV [facility] Last Admin: 10/11/18 11:19 Dose: 100 mls/hr Lorazepam (Ativan) 0.5 mg IVPUSH Q4H PRN PRN Reason: Nausea/Vomiting Magnesium Hydroxide (Milk Of Magnesia) 30 ml PO Q12H PRN PRN Reason: Constipation Ondansetron HCl (Zofran Odt) 4 mg PO Q6H PRN PRN Reason: Nausea able to take PO Ondansetron HCl (Zofran) 4 mg IV Q6H PRN PRN Reason: Nausea/Vomiting Oxycodone HCl (Oxycodone) 5 mg PO Q4H PRN PRN Reason: Pain Senna/Docusate Sodium (Senna Plus) 1 tab PO BID PRN PRN Reason: Constipation Simvastatin (Zocor) 10 mg PO DAILY [facility] Last Admin: 10/11/18 08:11 Dose: 10 mg Discontinued Medications Hydromorphone HCl (Dilaudid) 0.5 mg IVPUSH ONETIME ONE Stop: 10/10/18 16:08 Last Admin: 10/10/18 16:15 Dose: 0.5 mg Sodium Chloride (Normal Saline) 1,000 mls @ 999 mls/hr IV [facility] Last Admin: 10/10/18 15:45 Dose: 999 mls/hr Sodium Chloride (Normal Saline) 1,000 mls @ 500 mls/hr IV [facility] Last Admin: 10/10/18 17:35 Dose: 500 mls/hr Magnesium Citrate (Citrate Of Magnesia) 296 ml PO ONETIME ONE Stop: 10/10/18 16:45 Last Admin: 10/10/18 17:37 Dose: 296 ml Ondansetron HCl (Zofran) 4 mg IVPUSH ONETIME ONE Stop: 10/10/18 16:09 Last Admin: 10/10/18 16:12 Dose: 4 mg - Exam Quality Assessment: No: Supplemental Oxygen General: Alert, Oriented, Cooperative, No Acute Distress Lungs: Normal Respiratory Effort GI/Abdominal Exam: Soft, Non-Tender, Distended Extremities: No Pedal Edema Skin: Warm, Dry Psy/Mental Status: Alert, Normal Affect - Problem List & Annotations (1) Acute kidney injury SNOMED Code(s): 65211403, 92500482 Code(s): N17.9 - ACUTE KIDNEY FAILURE, UNSPECIFIED Status: Acute Current Visit: Yes (2) Prostatitis SNOMED Code(s): 6432493 Code(s): N41.9 - INFLAMMATORY DISEASE OF PROSTATE, UNSPECIFIED Status: Acute Current Visit: Yes Qualifiers: Prostatitis type: acute Qualified Code(s): N41.0 - Acute prostatitis (3) Ileus SNOMED Code(s): 519422909 Code(s): K56.7 - ILEUS, UNSPECIFIED Status: Acute Current Visit: Yes - Problem List Review Problem List Initiated/Reviewed/Updated: Yes - My Orders Last 24 Hours: My Active Orders 10/10/18 17:30 Sodium Chloride 0.9% [Normal Saline] 1,000 ml IV ASDIRECTED cefTRIAXone [Rocephin] 2 gm Sodium Chloride 0.9% [Normal Saline] 50 ml IV Q24H 10/10/18 17:32 Resuscitation Status Routine 10/10/18 18:15 Patient Status [ADT] Routine Antiembolic Devices [RC] .Routine Intake and Output [RC] QSHIFT Notify Provider Vital Signs [RC] ASDIRECTED Oxygen Therapy [RC] PRN RT Aerosol Therapy [RC] ASDIRECTED Up ad [place] [RC] ASDIRECTED VTE/DVT Education [RC] Per Unit Routine Vital Signs [RC] Q4H Acetaminophen [Tylenol] 650 mg PO Q4H PRN Albuterol [Proventil Neb Soln] 2.5 mg NEB Q4H PRN Docusate Sodium/Sennosides [Senna Plus] 1 tab PO BID PRN HYDROmorphone [Dilaudid] 0.5 mg IVPUSH Q2H PRN LORazepam [Ativan] 0.5 mg IVPUSH Q4H PRN Magnesium Hydroxide [Milk of Magnesia] 30 ml PO Q12H PRN Ondansetron [Zofran ODT] 4 mg PO Q6H PRN Ondansetron [Zofran] 4 mg IV Q6H PRN oxyCODONE 5 mg PO Q4H PRN Sequential Compression Device [OM.PC] Routine 10/11/18 09:00 Aspirin 81 mg PO DAILY Enalapril [Vasotec] 20 mg PO DAILY Simvastatin [Zocor] 10 mg PO DAILY 10/11/18 14:15 Convert IV to Saline Lock [OM.PC] Routine 10/11/18 Dinner Mechanical Soft Diet [DIET] 10/12/18 05:00 BASIC METABOLIC PANEL,BMP [CHEM] Timed CBC W/O DIFF,HEMOGRAM [HEME] Timed (1) - Plan Plan:: ASSESSMENT AND PLAN - Acute kidney injury - creatinine of 3.2 with baseline around 1. creatinine improving with hydration. -saline lock IV and encourage oral intake -Labs in the morning Acute prostatitis, suspected - urine sample suggestive of infection and patient has acute urinary retention. Urine culture is pending. Low-grade temperature elevations overnight. -Ceftriaxone -Follow-up urine culture Acute urinary retention - Probably related to the prostatitis as discussed above. A Reynolds catheter has been placed in the emergency room. -Anticipate catheter will be in place for 2 weeks Ileus, suspected - symptomatically improving with treatment of infection and bowel stimulation. -Treat infection as above Maintenance issues - - DVT prophylaxis - mechanical - GI prophylaxis - Not indicated - Nutrition - Full liquids - Reynolds catheter - Placed in the emergency room because of acute urinary retention Disposition - I would anticipate discharge home after the hospital stay Jonathan Peña M.D.
[2018-10-11] MEDS: cefTRIAXone 2 GM in Sodium Chloride 0.9% 50 ML IV SCH (17:06)
[2018-10-12] MEDS: Simvastatin 20 MG Tab PO SCH (10:12)
[2018-10-12] MEDS: Aspirin 81 MG Tab.Chew PO SCH (10:12)
[2018-10-12] MEDS: Enalapril 5 MG Tab PO SCH (10:13)
--- NOTE | 2018-10-12 12:28 | PCM.DCSUM1 ---
Discharge Summary - Hospital Course Brief History: 78-year-old male with history of hypertension and hypercholesterolemia who presented with abdominal pain and inability to pass urine. He was admitted for management of prostatitis with urinary retention and ileus. Diagnosis: Stroke: No - Discharge Data Discharge Date: 10/12/18 Discharge Disposition: Home, Self-Care 01 Condition: Good - Discharge Diagnosis/Problem(s) (1) Acute kidney injury SNOMED Code(s): 72053616, 56794349 ICD Code: N17.9 - ACUTE KIDNEY FAILURE, UNSPECIFIED Status: Acute Current Visit: Yes (2) Prostatitis SNOMED Code(s): 8480848 ICD Code: N41.9 - INFLAMMATORY DISEASE OF PROSTATE, UNSPECIFIED Status: Acute Current Visit: Yes Qualifiers: Prostatitis type: acute Qualified Code(s): N41.0 - Acute prostatitis (3) Ileus SNOMED Code(s): 620576956 ICD Code: K56.7 - ILEUS, UNSPECIFIED Status: Acute Current Visit: Yes - Patient Summary/Data Hospital Course: Michael presented to the emergency room with 2 days of abdominal distention and difficulty passing urine with inability to pass urine on the day of presentation. He was started on antibiotics one day prior for a suspected urinary tract infection. Workup in the emergency room was felt to be suggestive of prostatitis with urinary retention and possibly an ileus resulting from the infection. X-ray imaging and CT imaging did not suggest obstruction or show significant stool in the colon. Laboratory studies were suggestive of acute kidney injury with a creatinine of greater than 3. He received IV antibiotics, IV fluids and a dose of magnesium citrate in the emergency room. A Reynolds catheter was placed in the emergency room because of urinary retention. Overnight following admission there were no acute issues. The morning after admission he had a large bowel movement and this did help his abdominal distention and pain. He did have some low-grade temperature elevations overnight but has not had significant fevers. He had additional bowel movements through the day following admission. This further reduced his abdominal pain and distention. He has been tolerating his diet though he has been eating smaller quantities than usual. He had an additional bowel movement early in the morning on the day of discharge. Abdominal distention is mild and has improved significantly since presentation. He has no significant pain at this time. He has been able to further increase his diet though it's not back to normal at this time. He has been tolerating the ceftriaxone well but I think should be covered well by Bactrim with the suspected diagnosis of prostatitis. His kidney function has returned to normal and he is safe for the double strength dosing of Bactrim. The plan will be for him to complete 7 additional days of antibiotic therapy. He has a Reynolds catheter in place and I plan to leave this in place for about 2 weeks until the infection has been adequately treated. I would anticipate a trial of voiding at that time. We did not start tamsulosin during the hospital stay because he does not have significant nocturia prior to onset of symptoms and I don't believe that the medication will provide long- term benefit. Follow-up is planned for the end of next week. - Patient Instructions Diet: Regular Diet as Tolerated Activity: As Tolerated Showering/Bathing: May Shower Notify Provider of: Fever, Increased Pain, Nausea and/or Vomiting Other/Special Instructions: 1. You were in the hospital for management of acute prostatitis complicated by urinary retention as well as the development of an ileus (slowing of your intestines). We placed a Reynolds catheter to help drain your bladder because of the prostate swelling. This should remain in place for about 2 weeks. You should be able to have this catheter removed on or about October 24. I recommend additional antibiotic therapy for the prostatitis ( infection/inflammation of the prostate). You should take your remaining tablets of Bactrim that you have at home. I have also sent a prescription for additional tablets of Bactrim. You should take this medication twice daily until you are out of these tablets. Your next dose will be due tonight. 2. Continue your other home medications as previously prescribed. 3. Seek medical attention if you have fever greater than 101, severe abdominal pain or persistent vomiting. - Discharge Plan *PRESCRIPTION DRUG MONITORING PROGRAM REVIEWED*: Not Applicable *COPY OF PRESCRIPTION DRUG MONITORING REPORT IN PATIENT ELLIOTT: Not Applicable Prescriptions/Med Rec: Sulfamethoxazole/Trimethoprim [Bactrim Ds Tablet] 1 each PO BID #12 tablet Home Medications: Home Meds Aspirin 81 mg PO DAILY 10/10/18 [History] Enalapril [Vasotec] 20 mg PO DAILY 10/10/18 [History] Simvastatin 10 mg PO DAILY 10/10/18 [History] Sulfamethoxazole/Trimethoprim [Bactrim Ds Tablet] 1 each PO BID #12 tablet 10/12 [Rx] Oxygen Therapy Mode: Room Air Patient Handouts: Indwelling Urinary Catheter Care, Adult, [id number], Prostatitis, Acute Urinary Retention, Male, [id number] Referrals: Ronaldo Munguia NP [Primary Care Provider] - 10/18/18 1:30 pm (Appointment with Ronaldo Munguia is at the [facility]. Please arrive 15 minutes early to register for appointment.) - Discharge Summary/Plan Comment DC Time >30 min.: No - Patient Data Vitals - Most Recent: Last Vital Signs Temp 36.5 C 10/12/18 10:43 Pulse 66 10/12/18 10:43 Resp 16 10/12/18 10:43 BP 165/65 H 10/12/18 10:43 Pulse Ox 93 L 10/12/18 10:43 Weight - Most Recent: 101.06 kg I&O - Last 24 hours: Intake & Output 10/11/18 10/12/18 10/12/18 22:59 06:59 14:59 Intake Total 480 Output Total 700 650 Balance -700 -650 480 Lab Results - Last 24 hrs: Laboratory Results - last 24 hr 10/12/18 10/12/18 Range/Units 05:04 05:04 WBC 7.9 (4.5-11.0) K/uL RBC 4.19 L (4.30-5.90) M/uL Hgb 12.2 (12.0-15.0) g/dL Hct 38.2 L (40.0-54.0) % MCV 91 (80-98) fL MCH 29 (27-31) pg MCHC 32 (32-36) % Plt Count 210 (150-400) K/uL Sodium 142 (140-148) mmol/L Potassium 4.1 (3.6-5.2) mmol/L Chloride 107 (100-108) mmol/L Carbon Dioxide 29 (21-32) mmol/L Anion Gap 6.1 (5.0-14.0) mmol/L BUN 15 (7-18) mg/dL Creatinine 1.2 (0.8-1.3) mg/dL Est Cr Clr Drug Dosing 45.27 mL/min Estimated GFR (MDRD) 58 L (>60) Glucose 102 (74-106) mg/dL Calcium 8.7 (8.5-10.1) mg/dL Med Orders - Current: Current Medications Acetaminophen (Tylenol) 650 mg PO Q4H PRN PRN Reason: Pain (Mild 1-3)/fever Albuterol (Proventil Neb Soln) 2.5 mg NEB Q4H PRN PRN Reason: Shortness Of Breath/wheezing Aspirin (Aspirin) 81 mg PO DAILY [facility] Last Admin: 10/12/18 10:12 Dose: 81 mg Enalapril Maleate (Vasotec) 20 mg PO DAILY [facility] Last Admin: 10/12/18 10:13 Dose: 20 mg Hydromorphone HCl (Dilaudid) 0.5 mg IVPUSH Q2H PRN PRN Reason: Pain (severe 7-10) Ceftriaxone Sodium 2 gm/ (Sodium Chloride) 50 mls @ 100 mls/hr IV Q24H [facility] Last Admin: 10/11/18 17:06 Dose: 100 mls/hr Lorazepam (Ativan) 0.5 mg IVPUSH Q4H PRN PRN Reason: Nausea/Vomiting Magnesium Hydroxide (Milk Of Magnesia) 30 ml PO Q12H PRN PRN Reason: Constipation Ondansetron HCl (Zofran Odt) 4 mg PO Q6H PRN PRN Reason: Nausea able to take PO Ondansetron HCl (Zofran) 4 mg IV Q6H PRN PRN Reason: Nausea/Vomiting Oxycodone HCl (Oxycodone) 5 mg PO Q4H PRN PRN Reason: Pain Senna/Docusate Sodium (Senna Plus) 1 tab PO BID PRN PRN Reason: Constipation Simvastatin (Zocor) 10 mg PO DAILY [facility] Last Admin: 10/12/18 10:12 Dose: 10 mg Discontinued Medications Hydromorphone HCl (Dilaudid) 0.5 mg IVPUSH ONETIME ONE Stop: 10/10/18 16:08 Last Admin: 10/10/18 16:15 Dose: 0.5 mg Sodium Chloride (Normal Saline) 1,000 mls @ 999 mls/hr IV ASDIRECTED [facility] Last Admin: 10/10/18 15:45 Dose: 999 mls/hr Sodium Chloride (Normal Saline) 1,000 mls @ 500 mls/hr IV ASDIRECTED [facility] Last Admin: 10/10/18 17:35 Dose: 500 mls/hr Sodium Chloride (Normal Saline) 1,000 mls @ 100 mls/hr IV ASDIRECTED [facility] Last Admin: 10/11/18 11:19 Dose: 100 mls/hr Magnesium Citrate (Citrate Of Magnesia) 296 ml PO ONETIME ONE Stop: 10/10/18 16:45 Last Admin: 10/10/18 17:37 Dose: 296 ml Ondansetron HCl (Zofran) 4 mg IVPUSH ONETIME ONE Stop: 10/10/18 16:09 Last Admin: 10/10/18 16:12 Dose: 4 mg - Exam Quality Assessment: Denies: Supplemental Oxygen General: Reports: Alert, Oriented, Cooperative, No Acute Distress Lungs: Reports: Normal Respiratory Effort GI/Abdominal Exam: Soft, Non-Tender, Distended (mild) Extremities: No Pedal Edema Psy/Mental Status: Reports: Alert, Normal Affect
== END 2018-10-12 14:46 | disposition home or self-care (01) | DRG 683 ==
LOC: JP.ED 13:00 → JP.MS 17:31
PROVIDERS: ADMIT Internal Medicine; ATTEND Internal Medicine
DX: R33.9 Retention of urine, unspecified (principal); K59.00 Constipation, unspecified; N17.9 Acute kidney failure, unspecified; K56.7 Ileus, unspecified; N41.0 Acute prostatitis; I10 Essential (primary) hypertension; M54.9 Dorsalgia, unspecified; G89.29 Other chronic pain; E66.9 Obesity, unspecified; E78.00 Pure hypercholesterolemia, unspecified; N13.9 Obstructive and reflux uropathy, unspecified; R14.0 Abdominal distension (gaseous); R06.02 Shortness of breath; R53.81 Other malaise; N05.9 Unspecified nephritic syndrome with unspecified morphologic changes; R60.9 Edema, unspecified; R53.1 Weakness; R10.84 Generalized abdominal pain; Z79.82 Long term (current) use of aspirin; Z79.899 Other long term (current) drug therapy; Z85.828 Personal history of other malignant neoplasm of skin; Z87.891 Personal history of nicotine dependence
CPT/HCPCS: 36415; 51702; 51798; 74022; 74176; 80053; 81001; 83605; 85025; 86140; 96361; 96374; 96375; 99284; 99285; J1170; J2405; J7030; 80048; 85027; A9270-GY; J0696; J7050

== ENCOUNTER 2018-10-25 23:03 | Emergency (ER) | payer MEDICARE, OTHER ==
--- NOTE | 2018-10-26 00:13 | EDM.PDOC ---
ED HPI GENERAL MEDICAL PROBLEM - General Chief Complaint: Genitourinary Problem Stated Complaint: HAVING HARD TIME URNATING Time Seen by Provider: 10/26/18 00:02 Source of Information: Reports: Patient, Family, RN Notes Reviewed History Limitations: Reports: No Limitations - History of Present Illness INITIAL COMMENTS - FREE TEXT/NARRATIVE: 78-year-old gentleman presents to the emergency department today with complaint difficulty with urination. He recently was in the emergency department last week for urinary retention catheter was placed was evaluated in the clinic today catheter was removed at 2:00 this afternoon. he presents at this time with the complaint of inability to urinate and abdominal pain - Related Data Allergies Allergy/AdvReac Type Severity Reaction Status Date / Time No Known Allergies Allergy Verified 10/10/18 14:25 Home Meds: Home Meds Aspirin 81 mg PO DAILY 10/10/18 [History] Enalapril [Vasotec] 20 mg PO DAILY 10/10/18 [History] Simvastatin 10 mg PO DAILY 10/10/18 [History] Sulfamethoxazole/Trimethoprim [Bactrim Ds Tablet] 1 each PO BID #12 tablet 10/12 [Rx] Past Medical History HEENT History: Reports: Cataract Cardiovascular History: Reports: High Cholesterol, Hypertension Respiratory History: Reports: SOB Genitourinary History: Reports: Retention, Urinary Musculoskeletal History: Reports: Back Pain, Chronic Endocrine/Metabolic History: Reports: Obesity/BMI 30+ Oncologic (Cancer) History: Reports: Other (See Below) Other Oncologic History: "skin cancer on nose." - Past Surgical History HEENT Surgical History: Reports: Cataract Surgery Social & Family History - Family History Musculoskeletal: Reports: Arthritis - Tobacco Use Smoking Status *Q: Never Smoker - Caffeine Use Caffeine Use: Reports: Coffee - Recreational Drug Use Recreational Drug Use: No ED ROS GENERAL - Review of Systems Review Of Systems: See Below Constitutional: Reports: No Symptoms GI/Abdominal: Reports: Abdominal Pain : Reports: Urinary Retention ED EXAM, RENAL/ - Physical Exam Exam: See Below Exam Limited By: No Limitations General Appearance: Alert, WD/WN, No Apparent Distress Respiratory/Chest: No Respiratory Distress GI/Abdominal: Tender (Suprapubic tenderness) Course - Vital Signs Last Recorded V/S: Last Vital Signs Temp 94.4 F L 10/26/18 00:00 Pulse 94 10/26/18 00:00 Resp 16 10/26/18 00:00 BP 125/69 10/26/18 00:00 Pulse Ox 95 10/26/18 00:00 - Orders/Labs/Meds Orders: Active Orders 24 hr Category Date Time Status Bladder Scan [RC] ASDIRECTED Care 10/25/18 23:33 Active Reynolds Catheter Insertion [Insert Urinary Catheter] [OM. Care 10/25/18 23:45 Ordered PC] Q24H Urinary Catheter Assessment [RC] ASDIRECTED Care 10/25/18 23:37 Active Departure - Departure Time of Disposition: 00:12 Disposition: Home, Self-Care 01 Condition: Fair Clinical Impression: Urinary retention - Discharge Information Instructions: Acute Urinary Retention, Male Referrals: Ronaldo Munguia NP [Primary Care Provider] - Additional Instructions: Please coordinate with your primary care provider on Sunday or consultation urology, call or return to the emergency department with worsening of symptoms - My Orders Last 24 Hours: My Active Orders 10/25/18 23:33 Bladder Scan [RC] ASDIRECTED 10/25/18 23:37 Urinary Catheter Assessment [RC] ASDIRECTED 10/25/18 23:45 Reynolds Catheter Insertion [Insert Urinary Catheter] [OM.PC] Q24H - Assessment/Plan Last 24 Hours: My Active Orders 10/25/18 23:33 Bladder Scan [RC] ASDIRECTED 10/25/18 23:37 Urinary Catheter Assessment [RC] ASDIRECTED 10/25/18 23:45 Reynolds Catheter Insertion [Insert Urinary Catheter] [OM.PC] Q24H Plan: Assessment Acuity = acute Site and laterality = urinary retention Etiology = unclear etiology Manifestations = abdominal pain now resolved Location of injury = Home Lab values = none Plan Bladder scan was over 1000 mL, Reynolds catheter was replaced have him follow-up with his primary care on Sunday with consultation with urology This note was dictated using [employer] voice recognition software please call with any questions on syntax or grammar.
== END 2018-10-26 00:25 | disposition home or self-care (01) ==
LOC: JP.ED 23:03
DX: R33.9 Retention of urine, unspecified (principal); E78.00 Pure hypercholesterolemia, unspecified; I10 Essential (primary) hypertension; Z79.82 Long term (current) use of aspirin; Z79.899 Other long term (current) drug therapy
CPT/HCPCS: 51702; 51798; 99282; 99283